=== PATIENT | male | born 1980 | race African-American/Black ===

== ENCOUNTER 2018-09-29 21:57 | Emergency (ER) | payer OTHER, SELFPAY ==
[2018-09-29] MEDS ORDERED: KETOROLAC 30 MG/ML INJ ONE (23:28)
[2018-09-29] MEDS ORDERED: HYDROCODONE/APAP 10/325 TAB ONE (23:29)
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
== END 2018-09-30 00:56 | disposition home or self-care (01) ==
LOC: ER 21:57
DX: S16.1XXA Strain of muscle, fascia and tendon at neck level, initial encounter (principal); S20.229A Contusion of unspecified back wall of thorax, initial encounter; S20.219A Contusion of unspecified front wall of thorax, initial encounter; V49.9XXA Car occupant (driver) (passenger) injured in unspecified traffic accident, initial encounter
CPT/HCPCS: 70450; 71250; 72125; 96372; 99284

== ENCOUNTER 2018-10-01 10:51 | Emergency (ER) | payer SELFPAY ==
[2018-10-01] MEDS ORDERED: METHOCARBAMOL 1,000 MG in NA CHLORIDE 0.9% 100 ML IV ONE (12:00)
[2018-10-01] MEDS ORDERED: HYDROCODONE/APAP 10/325 TAB ONE (12:01)
[2018-10-01] MEDS ORDERED: METHYLPREDNISOLONE 125 MG INJ ONE (12:01)
[2018-10-01] MEDS ORDERED: KETOROLAC 30 MG/ML INJ ONE (12:02)
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
== END 2018-10-01 13:38 | disposition home or self-care (01) ==
LOC: ER 10:51
DX: S29.012A Strain of muscle and tendon of back wall of thorax, initial encounter (principal); M25.551 Pain in right hip; V89.2XXA Person injured in unspecified motor-vehicle accident, traffic, initial encounter
CPT/HCPCS: 71046; 96365; 96366; 96375; 99284; J2800; J2930

== ENCOUNTER 2020-08-08 19:35 | Emergency (ER) | payer SELFPAY ==
[2020-08-08] MEDS ORDERED: ACETAMINOPHEN 500 MG TAB ONE (20:50)
[2020-08-08 21:14] LABS: Absolute Lymphocytes (CBC) 0.4 K/uL (0.7-4.9); Basophils % 0.5 % (0-1.3); Hematocrit 39.5 % (39.6-49.0); Lymphocytes % 7.8 % (15.3-44.8); MPV 9.6 fL (7.6-11.3); RBC Red Blood Cell Count 4.94 M/uL (4.33-5.43)
[2020-08-08] MEDS ORDERED: CEFTRIAXONE/SWI 1gm 1 GM/10 ML SYR ONE (21:16)
[2020-08-08] MEDS ORDERED: NA CHLORIDE 0.9% 2,000 ML ONE (21:16)
[2020-08-08] MEDS ORDERED: NA CHLORIDE 0.9% 250 ML ONE (21:16)
--- NOTE | 2020-08-08 21:17 | RAD REPORT ---
EXAM DESCRIPTION: RAD - Chest Pa And Lat (2 Views) - 08/08/2020 9:04 pm CLINICAL HISTORY: COUGH, chills, decreased appetite, body aches COMPARISON: September 2018 TECHNIQUE: Frontal and lateral views of the chest were obtained. FINDINGS: The lungs are underinflated compared to prior imaging. This accentuates the interstitial p attern. No mass or consolidation. No ground-glass opacities confirmed. Peribronchial thickening is no t outside of normal range. Heart size is normal and central vasculature is within normal limits. N o pleural effusion or pneumothorax seen. No acute bony finding noted. No aortic abnormality. IMPRESSION: No focal mass or consolidation. Shallow inspiration accentuates interstitial pattern potentially masking early infiltrate.
[2020-08-08] MEDS ORDERED: AZITHROMYCIN 500 MG INJ IVPB ONE (21:19)
[2020-08-08 21:28] LABS: ALT/SGPT 25 U/L (12-78); AST/SGOT 19 U/L (15-37); Albumin 3.9 g/dL (3.4-5.0); Alkaline Phosphatase 91 U/L (45-117); BUN Blood Urea Nitrogen 13 mg/dL (7-18); Bicarbonate 28 mmol/L (21-32); Bilirubin Total 0.3 mg/dL (0.2-1.0); Glucose Level 97 mg/dL (74-106); Potassium 3.5 mmol/L (3.5-5.1); Protein, Total 7.6 g/dL (6.4-8.2); Sodium Level 143 mmol/L (136-145)
[2020-08-08] MEDS ORDERED: ASPIRIN 81 MG CHEWABLE TABLET ONE (21:49)
[2020-08-08] MEDS ORDERED: dexAMETHasone 10 MG/ML VIAL ONE (21:49)
[2020-08-08] MEDS ORDERED: KETOROLAC 30 MG/ML INJ ONE (22:24)
--- NOTE | 2020-08-08 22:25 | ER ---
Nurse's Notes [facility] Name: Hu Irvin Age: 39 yrs Sex: Male : 1980 Arrival Date: 08/08/2020 Time: 19:36 Bed 4 Private MD: Diagnosis: Malaise and fatigue;Fever, unspecified;Headache;Acute upper respiratory infection, unspecified;SARS-associated coronavirus as the cause of diseases classified elsewhere-covid 19 positive Presentation: 08/08 19:45 Chief complaint: Patient states: headache body pain and chills started last night, dm5 decreased appetite, headache rated at 9/10 at this time. Coronavirus screen: Client denies travel out of the [place] in the last 14 days. chills, headache, muscle pain, Client presents with at least one sign or symptom that may indicate coronavirus-19. Standard/surgical mask placed on the client. Ebola Screen: Patient negative for fever greater than or equal to 101.5 degrees Fahrenheit, and additional compatible Ebola Virus Disease symptoms Patient denies exposure to infectious person. Patient denies travel to an Ebola-affected area in the 21 days before illness onset. No symptoms or risks identified at this time. Initial Sepsis Screen: Does the patient meet any 2 criteria? HR > 90 bpm. No. Patient's initial sepsis screen is negative. Does the patient have a suspected source of infection? No. Patient's initial sepsis screen is negative. Risk Assessment: Do you want to hurt yourself or someone else? Patient reports no desire to harm self or others. Onset of symptoms was August 07, 2020. 19:45 Method Of Arrival: Ambulatory dm5 19:45 Acuity: ALEXANDRA 3 dm5 Triage Assessment: 20:32 Headache History: Denies prior headaches. General: Appears uncomfortable. General: rv Behavior is calm, cooperative. Pain: Complains of pain in all over Pain Pain began 1 day ago. 22:49 Pain: Also complains of no other associated symptoms. rv Historical: - Allergies: 19:47 No Known Allergies; dm5 - Home Meds: 19:47 None [Active]; dm5 - PMHx: 19:47 None; dm5 - PSHx: 19:47 right ankle surgery; dm5 - Immunization history:: Adult Immunizations unknown. - Social history:: Smoking status: unknown. - Family history:: not pertinent. Screenin:31 Abuse screen: Denies threats or abuse. Denies injuries from another. Nutritional rv screening: No deficits noted. Tuberculosis screening: No symptoms or risk factors identified. Fall Risk None identified. Assessment: 20:30 General: Appears uncomfortable, Behavior is calm, cooperative. Pain: Complains of pain rv in all over. Neuro: Level of Consciousness is awake, alert, obeys commands, Oriented to person, place, time, situation. Cardiovascular: Patient's skin is warm and dry. Respiratory: Airway is patent Respiratory effort is even, unlabored, Breath sounds are clear bilaterally. Derm: Skin is intact. 21:19 Reassessment: Patient and/or family updated on plan of care and expected duration. Pain ea level reassessed. Patient is alert, oriented x 3, equal unlabored respirations, skin warm/dry/pink. Awaiting on lab results. 22:34 Reassessment: Patient and/or family updated on plan of care and expected duration. Pain ea level reassessed. Patient is alert, oriented x 3, equal unlabored respirations, skin warm/dry/pink. Awaiting on IV antibiotics to complete. Vital Signs: 19:45 BP 124 / 96; Pulse 107; Resp 20; Temp 99.6; Pulse Ox 99% on R/A; Weight 75.75 kg; dm5 Height 5 ft. 7 in. (170.18 cm); Pain 9/10; 20:31 BP 122 / 91; Pulse 112; Resp 20; Temp 100; Pulse Ox 99% on R/A; rv 22:35 BP 121 / 75; Pulse 109; Resp 18; Pulse Ox 97% on R/A; ea 22:48 BP 120 / 78; Pulse 91; Resp 18; Temp 98.4; Pulse Ox 97% on R/A; rv 22:54 Temp 98.4(O); rv 19:45 Body Mass Index 26.16 (75.75 kg, 170.18 cm) dm5 [place] Coma Score: 21:39 Eye Response: spontaneous(4). Verbal Response: oriented(5). Motor Response: obeys malcolm commands(6). Total: 15. ED Course: 19:36 Patient arrived in ED. cf2 19:47 Triage completed. dm5 20:05 aRmses Marquez MD is Attending Physician. malcolm 20:21 Ozzie Cisneros RN is Primary Nurse. rv 20:31 Arm band placed on right wrist. rv 20:31 Patient has correct armband on for positive identification. Bed in low position. Call rv light in reach. Side rails up X 1. Pulse ox on. NIBP on. 21:00 Inserted saline lock: 20 gauge in right antecubital area, using aseptic technique. rv Blood collected. 21:00 Initial lab(s) drawn, by me, sent to lab. rv 21:02 Chest Pa And Lat (2 Views) XRAY In Process Unspecified. EDMS 22:24 Marcello Le MD is Referral Physician. malcolm 22:49 No provider procedures requiring assistance completed. IV discontinued, intact, rv bleeding controlled, No redness/swelling at site. Pressure dressing applied. Administered Medications: 20:36 Drug: Tylenol 1000 mg Route: PO; rv 22:54 Follow up: Temp 98.4 Oral; Response: No adverse reaction; Temperature is decreased rv 20:40 Drug: Rocephin 2 grams Route: IV; Rate: per protocol; Site: right antecubital; ea 21:12 Follow up: Response: No adverse reaction; IV Status: Completed infusion; IV Intake: 10mlea 21:13 Drug: NS 0.9% 1000 ml Route: IV; Rate: 125 ml/hr; Site: right antecubital; ea 22:54 Follow up: IV Status: Order to discontinue infusion; IV Intake: 250ml rv 21:14 Drug: Zithromax 500 mg Route: IVPB; Infused Over: 1 hrs; Site: right antecubital; ea 22:53 Follow up: IV Status: Completed infusion; IV Intake: 250ml rv 21:15 Drug: NS 0.9% 1000 ml Route: IV; Rate: 1 bolus; Site: right antecubital; ea 22:53 Follow up: IV Status: Completed infusion; IV Intake: 1000ml rv 21:36 Drug: Decadron - Dexamethasone 10 mg Route: IVP; Site: right antecubital; rv 22:50 Follow up: Response: No adverse reaction rv 21:36 Drug: Aspirin Chewable Tablet 81 mg Route: PO; rv 22:50 Follow up: Response: No adverse reaction rv 22:13 Drug: TORadol 30 mg Route: IVP; Site: right antecubital; ea 22:49 Follow up: Response: No adverse reaction; Pain is decreased rv Intake: 21:12 IV: 10ml; Total: 10ml. ea 22:53 IV: 250ml; Total: 260ml. rv 22:53 IV: 1000ml; Total: 1260ml. rv 22:54 IV: 250ml; Total: 1510ml. rv Outcome: 22:25 Discharge ordered by . malcolm 22:53 Discharged to home ambulatory. rv 22:53 Condition: good 22:53 Discharge instructions given to patient, Instructed on discharge instructions, follow up and referral plans. medication usage, Demonstrated understanding of instructions, follow-up care, medications, Prescriptions given X 4. 23:00 Patient left the ED. rv Addendum: 08/15/2020 06:55 Addendum: COVID-19 Result: Positive result giiven to ED physician to notify pt. s g Physician: Ramses Marquez MD Physician was able to contact pt and pt was notified of positive COVID-19 swab result. Physician answered pt questions. Signatures: Dispatcher [employer] EDMS Annie Chavez, RN RN Carlos Alberto Wilks, RN Ramses Norman MD MD cha Antunez, Elena RN Ozzie Loaiza ea, RN RN Addison Ruff 2
--- NOTE | 2020-08-08 22:25 | EDPHYS ---
Physician Documentation [facility] Name: Hu Irvin Age: 39 yrs Sex: Male : 1980 Arrival Date: 08/08/2020 Time: 19:36 Bed 4 Private MD: ED Physician Ramses Marquez HPI: 08/08 20:32 This 39 yrs old Black Male presents to ER via Ambulatory with complaints of Headache, malcolm High Blood Pressure, BODY PAIN. 20:32 This 39 yrs old Black Male presents to ER via Ambulatory with complaints of Headache, malcolm High Blood Pressure, BODY PAIN. 20:32 The patient complains of pain to the top of head, forehead, left frontal area, left malcolm side of the back of head, right frontal area and right side of the back of head. The patient describes the headache as aching, constant. Onset: The symptoms/episode began/occurred 1 day(s) ago. 20:34 fever,malaise, headache. Associated signs and symptoms: Pertinent positives: malaise, malcolm weakness. Severity of symptoms: At its worst the pain was mild, moderate, in the emergency department the pain is unchanged. Headache History: Denies prior headaches. Onset: The symptoms/episode began/occurred 1 day(s) ago. The patient reports fever, not measured (subjective). Modifying factors: there are no obvious modifying factors. Historical: - Allergies: 19:47 No Known Allergies; dm5 - Home Meds: 19:47 None [Active]; dm5 - PMHx: 19:47 None; dm5 - PSHx: 19:47 right ankle surgery; dm5 - Immunization history:: Adult Immunizations unknown. - Social history:: Smoking status: unknown. - Family history:: not pertinent. ROS: 20:34 Constitutional: Negative for fever, chills, and weight loss, Eyes: Negative for injury, malcolm pain, redness, and discharge, Neck: Negative for injury, pain, and swelling, Cardiovascular: Negative for chest pain, palpitations, and edema, Abdomen/GI: Negative for abdominal pain, nausea, vomiting, diarrhea, and constipation, Back: Negative for injury and pain, : Negative for injury, bleeding, discharge, and swelling, MS/Extremity: Negative for injury and deformity, Skin: Negative for injury, rash, and discoloration, Psych: Negative for depression, anxiety, suicide ideation, homicidal ideation, and hallucinations, Allergy/Immunology: Negative for hives, rash, and allergies, Endocrine: Negative for neck swelling, polydipsia, polyuria, polyphagia, and marked weight changes, Hematologic/Lymphatic: Negative for swollen nodes, abnormal bleeding, and unusual bruising. 20:34 ENT: Positive for rhinorrhea, sinus congestion. 20:34 Neck: Negative for pain with movement. 20:34 Cardiovascular: Positive for palpitations. 20:34 Respiratory: Positive for cough, with no reported sputum. Exam: 20:34 Constitutional: This is a well developed, well nourished patient who is awake, alert, malcolm and in no acute distress. Head/Face: Normocephalic, atraumatic. Eyes: Pupils equal round and reactive to light, extra-ocular motions intact. Lids and lashes normal. Conjunctiva and sclera are non-icteric and not injected. Cornea within normal limits. Periorbital areas with no swelling, redness, or edema. ENT: Nares patent. No nasal discharge, no septal abnormalities noted. Tympanic membranes are normal and external auditory canals are clear. Oropharynx with no redness, swelling, or masses, exudates, or evidence of obstruction, uvula midline. Mucous membranes moist. Neck: Trachea midline, no thyromegaly or masses palpated, and no cervical lymphadenopathy. Supple, full range of motion without nuchal rigidity, or vertebral point tenderness. No Meningismus. Chest/axilla: Normal chest wall appearance and motion. Nontender with no deformity. No lesions are appreciated. Respiratory: Lungs have equal breath sounds bilaterally, clear to auscultation and percussion. No rales, rhonchi or wheezes noted. No increased work of breathing, no retractions or nasal flaring. Abdomen/GI: Soft, non-tender, with normal bowel sounds. No distension or tympany. No guarding or rebound. No evidence of tenderness throughout. Back: No spinal tenderness. No costovertebral tenderness. Full range of motion. Male : Normal genitalia with no discharge or lesions. Skin: Warm, dry with normal turgor. Normal color with no rashes, no lesions, and no evidence of cellulitis. Neuro: Awake and alert, GCS 15, oriented to person, place, time, and situation. Cranial nerves II-XII grossly intact. Motor strength 5/5 in all extremities. Sensory grossly intact. Cerebellar exam normal. Normal gait. Psych: Awake, alert, with orientation to person, place and time. Behavior, mood, and affect are within normal limits. 20:34 Cardiovascular: Rate: tachycardic, Rhythm: regular, Pulses: Pulses are 4+ in bilateral radial, brachial, femoral, popliteal, posterior tibial and and dorsalis pedis arteries.. Heart sounds: normal, Edema: is not appreciated, JVD: is not appreciated. Vital Signs: 19:45 BP 124 / 96; Pulse 107; Resp 20; Temp 99.6; Pulse Ox 99% on R/A; Weight 75.75 kg; dm5 Height 5 ft. 7 in. (170.18 cm); Pain 9/10; 20:31 BP 122 / 91; Pulse 112; Resp 20; Temp 100; Pulse Ox 99% on R/A; rv 22:35 BP 121 / 75; Pulse 109; Resp 18; Pulse Ox 97% on R/A; ea 22:48 BP 120 / 78; Pulse 91; Resp 18; Temp 98.4; Pulse Ox 97% on R/A; rv 22:54 Temp 98.4(O); rv 19:45 Body Mass Index 26.16 (75.75 kg, 170.18 cm) dm5 Stephanie Coma Score: 21:39 Eye Response: spontaneous(4). Verbal Response: oriented(5). Motor Response: obeys malcolm commands(6). Total: 15. MDM: 20:05 Patient medically screened. malcolm 21:39 Differential diagnosis: viral Infection, bacterial infection, bronchitis, pneumonia malcolm UTI, meningitis, meningitis, migraine, sinusitis. Differential Diagnosis sepsis, flu. Data reviewed: vital signs, nurses notes, lab test result(s), radiologic studies. Data interpreted: hall monitor: rate is 112 beats/min, rhythm is regular. Test interpretation: by ED physician or midlevel provider: plain radiologic studies. Counseling: I had a detailed discussion with the patient and/or guardian regarding: the historical points, exam findings, and any diagnostic results supporting the discharge/admit diagnosis, lab results, radiology results, the need for outpatient follow up, for definitive care, a family practitioner. 08/08 19:48 Order name: Flu; Complete Time: 20:45 dm5 08/08 20:48 Order name: CBC with Diff; Complete Time: 21:29 [facility] 08/08 20:48 Order name: Comprehensive Metabolic Panel; Complete Time: 21:29 [facility] 08/08 20:48 Order name: Lactate; Complete Time: 21:38 [facility] 08/08 20:48 Order name: Blood Culture Adult (2) [facility] 08/08 20:48 Order name: Chest Pa And Lat (2 Views) XRAY; Complete Time: 21:29 [facility] 08/08 22:21 Order name: SARS-COV-2 RT PCR EDMS Administered Medications: 20:36 Drug: Tylenol 1000 mg Route: PO; rv 22:54 Follow up: Temp 98.4 Oral; Response: No adverse reaction; Temperature is decreased rv 20:40 Drug: Rocephin 2 grams Route: IV; Rate: per protocol; Site: right antecubital; ea 21:12 Follow up: Response: No adverse reaction; IV Status: Completed infusion; IV Intake: 10mlea 21:13 Drug: NS 0.9% 1000 ml Route: IV; Rate: 125 ml/hr; Site: right antecubital; ea 22:54 Follow up: IV Status: Order to discontinue infusion; IV Intake: 250ml rv 21:14 Drug: Zithromax 500 mg Route: IVPB; Infused Over: 1 hrs; Site: right antecubital; ea 22:53 Follow up: IV Status: Completed infusion; IV Intake: 250ml rv 21:15 Drug: NS 0.9% 1000 ml Route: IV; Rate: 1 bolus; Site: right antecubital; ea 22:53 Follow up: IV Status: Completed infusion; IV Intake: 1000ml rv 21:36 Drug: Decadron - Dexamethasone 10 mg Route: IVP; Site: right antecubital; rv 22:50 Follow up: Response: No adverse reaction rv 21:36 Drug: Aspirin Chewable Tablet 81 mg Route: PO; rv 22:50 Follow up: Response: No adverse reaction rv 22:13 Drug: TORadol 30 mg Route: IVP; Site: right antecubital; ea 22:49 Follow up: Response: No adverse reaction; Pain is decreased rv Disposition: 08/08/20 22:25 Discharged to Home. Impression: Malaise and fatigue, Fever, unspecified, Headache, Acute upper respiratory infection, unspecified, SARS-associated coronavirus as the cause of diseases classified elsewhere - covid 19 positive. - Condition is Stable. - Discharge Instructions: Fever, Adult, Upper Respiratory Infection, Adult, Cool Mist Vaporizer, Upper Respiratory Infection, Adult, [id number], Weakness, [id number], Aspirin and Your Heart, Cough, Adult, Fever, Adult, [id number], COVID-19. - Prescriptions for dexamethasone 2 mg Oral tablet - take 1 tablet by ORAL route 3 times per day; 15 tablet. Pepcid 20 mg Oral Tablet - take 1 tablet by ORAL route every 12 hours for 10 days; 20 tablet. Albuterol Sulfate 90 mcg/actuation - inhale 1-2 puff by INHALATION route every 4-6 hours; 1 Inhaler. Zithromax 500 mg Oral Tablet - take 1 tablet by ORAL route once daily for 4 days; 4 tablet. - Medication Reconciliation Form, Thank You Letter, Antibiotic Education, Prescription Opioid Use form. - Work release form (08/08/20 23:03). ashwin - Follow up: Private Physician; When: 2 - 3 days; Reason: Recheck today's complaints, Continuance of care, Re-evaluation by your physician. Follow up: Marcello Le MD; When: 2 - 3 days; Reason: Recheck today's complaints, Re-evaluation by your physician. - Problem is new. - Symptoms have improved. Signatures: Dispatcher [employer] [facility] Annie Chavez RN RN Ramses Rodriguez MD MD cha Antunez, Elena, RN RN ea Vicente, Ronaldo RN RN rv Corrections: (The following items were deleted from the chart) 21:32 20:48 CORONAVIRUS+MR.LAB.BRZ ordered. [facility] 23:00 22:25 08/08/2020 22:25 Discharged to Home. Impression: Malaise and fatigue; Fever, rv unspecified; Headache; Acute upper respiratory infection, unspecified; SARS-associated coronavirus as the cause of diseases classified elsewhere - covid 19 positive. Condition is Stable. Discharge Instructions: Upper Respiratory Infection, Adult, Cool Mist Vaporizer, Upper Respiratory Infection, Adult, [id number]-[id number], Weakness, [id number], Aspirin and Your Heart, Cough, Adult, Fever, Adult, Fever, Adult, [id number]. Prescriptions for dexamethasone 2 mg Oral tablet - take 1 tablet by ORAL route 3 times per day; 15 tablet, Pepcid 20 mg Oral Tablet - take 1 tablet by ORAL route every 12 hours for 10 days; 20 tablet, Albuterol Sulfate 90 mcg/actuation - inhale 1-2 puff by INHALATION route every 4-6 hours; 1 Inhaler, Zithromax 500 mg Oral Tablet - take 1 tablet by ORAL route once daily for 4 days; 4 tablet. and Forms are Medication Reconciliation Form, Thank You Letter, Antibiotic Education, Prescription Opioid Use. Follow up: Private Physician; When: 2 - 3 days; Reason: Recheck today's complaints, Continuance of care, Re-evaluation by your physician. Follow up: Marcello Le; When: 2 - 3 days; Reason: Recheck today's complaints, Re-evaluation by your physician. Problem is new. Symptoms have improved. malcolm
[2020-08-09 13:36] VITALS: O2SAT 97
[2020-08-09 13:37] VITALS: BP 120/78; TEMP 98.4
== END 2020-08-08 23:00 | disposition home or self-care (01) ==
LOC: ER 19:35
DX: U07.1 COVID-19 (principal); J06.9 Acute upper respiratory infection, unspecified; R50.9 Fever, unspecified; R53.81 Other malaise; R53.83 Other fatigue
CPT/HCPCS: 36415; 71046; 80053; 83605; 85025; 87040; 87804; 96365; 96367; 96375; 99284; J0456; J0696; J1100; J7030; J7050; U0003